=== PATIENT | male | born 1955 | race Caucasian/White ===

== ENCOUNTER 2019-11-09 08:24 | Outpatient (CLI) | payer BC ==
[2019-11-09 10:18] LABS: #Basophils 0.1 thou/uL (0.0-0.2); #Eosinphils 0.5 thou/uL (0.0-0.7); #Monocytes 0.9 thou/uL (0.11-0.59); %Basophils 0.8 % (0.0-1.0); %Eosinophils 5.6 % (0.0-10.0); %Lymphocytes 31.9 % (21.0-51.0); %Monocytes 9.4 % (0.0-10.0); %Neutrophils 52.3 % (42.0-75.0); Hemoglobin 15.1 g/dL (14.0-18.0); Mean Corpuscular HGB CONC 33.7 g/dL (32.0-36.0); Mean Corpuscular Volume 89.2 fL (78.0-98.0); Mean Platelet Volume 8.3 fL (7.4-10.4); Platelet Count 199 thou/uL (130-400); RBC Distribution Width 12.1 % (11.5-14.5); Red Blood Cell (RBC) Count 5.02 mill/uL (4.70-6.10); White Blood Cell (WBC) Count 9.5 thou/uL (4.8-10.8)
[2019-11-09 10:20] LABS: Bacteria/HPF None Seen HPF (None Seen); Bilirubin Negative (Negative); Blood, Urine Negative (Negative); Clarity Clear (Clear); Glucose, Urine (Dipstick) Normal (Negative); Leukocyte Negative Leu/uL (Negative); Nitrite Negative (Negative); Protein, Urine (Dipstick) Negative (Neg-Trace); RBC/HPF 0-3 HPF (0-3); Squamous Epithelial None Seen HPF (0-3); Urobilinogen Normal mg/dL (Less than 2); WBC/HPF 0-3 HPF (0-3)
[2019-11-09 10:26] LABS: Prothrombin Time 12.9 SEC (12.0-14.7)
[2019-11-09 10:40] LABS: Anion Gap 12 mmol/L (10-20); BUN (Urea Nitrogen) 18 mg/dL (8.4-25.7); Calc. Creatinine Clearance 0 mL/min (70-130); Calcium 9.4 mg/dL (7.8-10.44); Carbon Dioxide 28 mmol/L (23-31); Chloride 106 mmol/L (98-107); Estimated GFR-MDRD 86; Glucose 86 mg/dL (80-115); Potassium 4.5 mmol/L (3.5-5.1); Sodium 141 mmol/L (136-145)
== END 2019-11-09 08:25 | disposition home or self-care (01) ==
LOC: LABBT 08:24
PROVIDERS: ATTEND Orthopaedic Surgery
DX: Z01.818 Encounter for other preprocedural examination (principal); M17.0 Bilateral primary osteoarthritis of knee
CPT/HCPCS: 80048; 81001; 85025; 85610; 87081; 93005; 93010

== ENCOUNTER 2020-02-29 05:37 | Outpatient (CLI) | payer BC, OTHER ==
[2020-02-29 18:12] LABS: #Basophils 0.1 thou/uL (0.0-0.2); #Eosinphils 0.3 thou/uL (0.0-0.7); #Lymphocytes 2.2 thou/uL (1.20-3.40); #Monocytes 0.7 thou/uL (0.11-0.59); %Basophils 0.9 % (0.0-1.0); %Eosinophils 3.1 % (0.0-10.0); %Lymphocytes 26.9 % (21.0-51.0); %Monocytes 8.4 % (0.0-10.0); %Neutrophils 60.8 % (42.0-75.0); Mean Corpuscular HGB CONC 33.7 g/dL (32.0-36.0); Mean Corpuscular Hemoglobin 29.6 pg (27.0-31.0); Mean Platelet Volume 8.8 fL (7.4-10.4); Platelet Count 211 thou/uL (130-400); RBC Distribution Width 11.7 % (11.5-14.5); Red Blood Cell (RBC) Count 5.07 mill/uL (4.70-6.10); White Blood Cell (WBC) Count 8.3 thou/uL (4.8-10.8)
[2020-02-29 18:15] LABS: INR-International Normal Ratio 0.9; Prothrombin Time 12.3 sec (12.0-14.7)
[2020-02-29 18:23] LABS: Bacteria/HPF None Seen HPF (None Seen); Bilirubin Negative (Negative); Blood, Urine Negative (Negative); Clarity Clear (Clear); Glucose, Urine (Dipstick) Normal (Negative); Ketone, Urine Negative (Negative); Leukocyte Negative Leu/uL (Negative); Nitrite Negative (Negative); Protein, Urine (Dipstick) Negative (Neg-Trace); RBC/HPF 0-3 HPF (0-3); Specific Gravity, Urine 1.016 (1.002-1.036); Squamous Epithelial None Seen HPF (0-3); Urobilinogen Normal mg/dL (Less than 2); WBC/HPF 0-3 HPF (0-3); pH, Urine 6.5 (5.0-9.0)
[2020-02-29 18:30] LABS: Anion Gap 9 mmol/L (10-20); BUN (Urea Nitrogen) 17 mg/dL (8.4-25.7); Calc. Creatinine Clearance 0 mL/min (70-130); Calcium 9.5 mg/dL (7.8-10.44); Carbon Dioxide 30 mmol/L (23-31); Chloride 104 mmol/L (98-107); Estimated GFR-MDRD Greater than 90; Glucose 88 mg/dL (80-115); Potassium 4.3 mmol/L (3.5-5.1); Sodium 139 mmol/L (136-145)
[2020-03-01 14:12] LABS: SARS-CoV-2 MS2 Positive; SARS-CoV-2 N Gene Negative; SARS-CoV-2 S Gene Negative; SARS-CoV-2 orf1ab Negative
== END 2020-02-29 05:38 | disposition home or self-care (01) ==
LOC: LABBT 05:37
PROVIDERS: ATTEND Orthopaedic Surgery
DX: Z01.812 Encounter for preprocedural laboratory examination (principal); Z11.59 Encounter for screening for other viral diseases; M17.0 Bilateral primary osteoarthritis of knee
CPT/HCPCS: 80048; 81001; 85025; 85610; 87635; U0003

== ENCOUNTER 2020-02-29 16:15 | Inpatient (IN) | payer BC ==
[2020-03-04] MEDS ORDERED: methylPREDNISolone Acetate 40 mg/ml Vial ONE (06:25)
[2020-03-04] MEDS ORDERED: Lidocaine 1% (PF) 30 ML VIAL ONE ×2 (06:25→06:31)
[2020-03-04] MEDS ORDERED: Bupivacaine PF 0.5% 30 ML VIAL ONE (06:25)
[2020-03-04] MEDS ORDERED: Fentanyl 100 MCG/2 ML VIAL ONE ×2 (06:30→07:21)
[2020-03-04] MEDS ORDERED: Midazolam HCl 2 mg/2 ml Vial ONE (06:30)
[2020-03-04] MEDS ORDERED: Tranexamic Acid 1,000 MG/10 ML VIAL ONE ×2 (06:32→09:11)
[2020-03-04] MEDS ORDERED: Vancomycin HCl 500 MG VIAL ONE (06:33)
[2020-03-04] MEDS ORDERED: Vancomycin 1 GM/200 ML BAG ONE (06:34)
[2020-03-04] MEDS ORDERED: Sodium Chloride 0.9% 100 ML ONE (06:34)
[2020-03-04] MEDS ORDERED: Clindamycin/D5W 600 mg/50 ml Premix Bag ONE (06:35)
[2020-03-04] MEDS ORDERED: HYDROcodone/Acetaminophen 10/325 mg Tablet PO PRN ×2 (06:57)
[2020-03-04] MEDS ORDERED: Ondansetron PF 4 MG/2 ML Vial IVP PRN ×2 (06:57→07:23)
[2020-03-04] MEDS ORDERED: Ropivacaine HCl/PF 250 ML in Premix Bag 1 BAG NERVE BLCK SCH (06:57)
[2020-03-04] MEDS ORDERED: Promethazine HCl 25 MG/ML VIAL IM PRN ×3 (06:57→08:05)
[2020-03-04] MEDS ORDERED: Zolpidem Tartrate 5 MG TAB PO PRN ×2 (06:57→07:23)
[2020-03-04] MEDS ORDERED: traMADol HCl 50 MG TAB PO PRN ×2 (06:57)
[2020-03-04] MEDS ORDERED: Fentanyl 100 MCG/2 ML VIAL IV PRN (06:58)
[2020-03-04] MEDS ORDERED: Acetaminophen 325 MG TAB PO PRN (07:23)
[2020-03-04] MEDS ORDERED: diphenhydrAMINE 25 MG CAP PO PRN (07:23)
[2020-03-04] MEDS ORDERED: Tranexamic Acid 1,000 MG in Sodium Chloride 0.9% 100 ML IVPB SCH (07:30)
[2020-03-04] MEDS ORDERED: Promethazine HCl 25 MG/ML VIAL SLOW IVP PRN (08:05)
[2020-03-04] MEDS ORDERED: HYDROmorphone 2 MG/ML VIAL SLOW IVP PRN (08:05)
[2020-03-04] MEDS ORDERED: Meperidine HCl/PF 25 MG/ML VIAL SLOW IVP PRN (08:05)
--- NOTE | 2020-03-04 09:11 | OP ---
DATE OF PROCEDURE: 03/04/2020 PREOPERATIVE DIAGNOSIS: Bilateral knee arthritis, left worse than right. POSTOPERATIVE DIAGNOSIS: Bilateral knee arthritis, left worse than right. PROCEDURES PERFORMED: 1. Left total knee replacement using [employer] pinless navigation. 2. Right knee corticosteroid injection. NETWORK MANAGEMENT SPECIALIST: Jose Capps PA-C ESTIMATED BLOOD LOSS: Minimal. COMPLICATIONS: None. ANESTHESIA: The patient had general anesthetic as well as preoperative block. IMPLANTS: To the left knee include [employer] total knee system, femur was size 5 cruciate-retaining, tibia was size 5 primary tibial baseplate. We used a 5 x 9 mm CS X3 tibial insert, and an asymmetric 32 x 10 X3 patella. DISPOSITION: He did go to recovery room in stable condition. 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 At this time, he wished to have the right knee injected and left knee replaced. DESCRIPTION OF PROCEDURE: After all appropriate consent forms were explained and signed, he was taken to the operative room and at this time was given general anesthetic. Once the level of anesthesia was appropriate, the right knee was cleaned off with alcohol and plain lidocaine with 80 mg Depo-Medrol was injected into the knee without complication. Band-Aid was applied. After all appropriate consent forms were explained and signed, the patient was taken back to the operating room and at this time was given general anesthetic. Once the level of anesthesia was appropriate, a well-padded tourniquet was placed on the left leg, and the leg was then prepped and draped in standard surgical fashion. The limb was exsanguinated and tourniquet taken up to 300 mmHg. Midline incision was made with a 10 blade down through the skin and subcutaneous tissue. Bovie electrocautery was used to coagulate any brisk venous bleeding. A new blade was used to make a medial parapatellar arthrotomy. Small subperiosteal release was performed medially and excess fat pad was removed. The knee was flexed up to gain access to the femur. The femur was navigated and distal femoral resection was made. Epicondylar access was used to align our sizing jig and this was pinned in place. We sized our femur to be a size 5 cruciate-retaining. 4:1 cutting block was applied and pinned. Anterior and posterior chamfer cuts were then made. We navigated out our proximal tibia and made our proximal tibial resection. Spreaders were used to remove any posterior osteophytes off the back of the femur as well as remaining meniscal tissue. A long alignment north was then used to achieve correct rotation of our tibial baseplate and a size 5 primary tibial baseplate was chosen. This was pinned in place. We trialed the polyethylene and we used a 5 x 9 mm CS X3 tibial insert polyethylene gave us full extension and good stability throughout range of motion. Two towel clips and a saw were used to cut our patella. Three lug nuts were drilled and an asymmetric 32 x 10 X3 patella was trialed which sat nicely in the trochlear groove. We then drilled our femur and punched our tibia. All components were removed. The knee was thoroughly irrigated and dried. Cement was mixed into the cement gun on the back table. Components were then placed. The knee was held out in full extension until the cement had dried. All excess bone cement was removed. Multiple #2 Vicryl stitches as well as a Quill were used to close our extensor mechanism. 0 Quill followed by a running Monoderm was then used to close the skin. Surgicel glue was then used on the skin. Once this had dried, soft tissue dressing was applied to the limb, tourniquet was let down, and the toes pinked up nicely. The patient was then awakened and taken to the recovery room in stable condition. All counts were correct at the end of the case. The patient did receive preoperative IV antibiotics. The patient was injected with Marcaine for postoperative pain relief. Job ID: [id number]
[2020-03-04 10:12] VITALS: BMI 24.8
[2020-03-04] MEDS: Ferrous Gluconate 324 MG TAB PO SCH ×2 (10:57→20:17)
[2020-03-04] MEDS: Aspirin 81 mg Enteric Coated Tablet PO SCH ×2 (10:57→20:16)
[2020-03-04] MEDS: Sodium Chloride 0.9% 1,000 ML IV SCH ×2 (10:57→16:22)
[2020-03-04] MEDS: Brimonidine Tartrate 0.2% Ophth Soln 5 ml Bottle EA EYE SCH ×2 (10:57→20:14)
[2020-03-04] MEDS: Senokot S 8.6-50 MG TAB PO SCH ×2 (10:58→20:17)
[2020-03-04] MEDS: Levothyroxine Sodium 112 MCG TAB PO SCH (10:58)
[2020-03-04] MEDS: Multivitamin W/ Minerals 1 TAB PO SCH (10:58)
[2020-03-04] MEDS: Timolol 0.5% Ophth Soln 5 ml Bottle EA EYE SCH ×2 (10:58→20:13)
[2020-03-04] MEDS ORDERED: Dexamethasone 20 MG/5 ML VIAL ONE (11:12)
[2020-03-04] MEDS ORDERED: Lidocaine 1% PF 5 ML VIAL ONE (11:12)
[2020-03-04] MEDS ORDERED: Ropivacaine 0.2% HCl/PF (40 MG/20 ML VIAL) ONE (11:12)
[2020-03-04] MEDS ORDERED: Ondansetron PF 4 MG/2 ML Vial ONE (11:12)
[2020-03-04] MEDS ORDERED: Bupivacaine HCl 0.5%/Epinephrine 1:200,000/PF 30 ml Vial ONE (11:12)
[2020-03-04] MEDS ORDERED: Ketorolac Tromethamine 30 MG/ML VIAL ONE (11:12)
[2020-03-04] MEDS ORDERED: EPHEDRINE 25 MG/5 ML SYRINGE ONE (11:12)
[2020-03-04] MEDS ORDERED: PROPOFOL 200 MG/20 ML VIAL ONE (11:12)
[2020-03-04] MEDS ORDERED: Non-Formulary Item 1 EACH (Valsartan [Valsartan] 1 TAB) PO SCH (12:00)
[2020-03-04] MEDS: Valsartan 80 MG TAB PO SCH (12:01)
[2020-03-04] MEDS: Clindamycin/D5W 900 MG in Premix Bag 1 BAG IVPB SCH ×2 (14:02→20:08)
[2020-03-04] MEDS: Ketorolac Tromethamine 30 MG/ML VIAL IVP SCH ×2 (14:02→20:08)
[2020-03-04] MEDS ORDERED: Vancomycin 1 GM in Premix Bag 1 BAG IVPB SCH (19:00)
[2020-03-04] MEDS: Latanoprost 0.005% Ophth Soln 2.5 ml Bottle EA EYE SCH (20:14)
[2020-03-04] MEDS: Loratadine 10 MG TAB PO SCH (20:17)
[2020-03-04] MEDS: Atorvastatin Calcium 20 MG TAB PO SCH (20:17)
[2020-03-04] MEDS ORDERED: Non-Formulary Item 1 EACH (Travoprost [Travatan Z] 1 DROP) TOP SCH (21:00)
[2020-03-04] MEDS ORDERED: Cetirizine HCl 10 MG TAB PO SCH (21:00)
[2020-03-05] MEDS: Ketorolac Tromethamine 30 MG/ML VIAL IVP SCH ×4 (02:31→21:19)
[2020-03-05] MEDS: Sodium Chloride 0.9% 1,000 ML IV SCH ×2 (03:18→11:21)
[2020-03-05 05:11] LABS: Hemoglobin 12.3 g/dL (14.0-18.0); Mean Corpuscular Hemoglobin 29.1 pg (27.0-31.0); Mean Corpuscular Volume 88.1 fL (78.0-98.0); Mean Platelet Volume 8.7 fL (7.4-10.4); Platelet Count 182 thou/uL (130-400); RBC Distribution Width 11.9 % (11.5-14.5); Red Blood Cell (RBC) Count 4.24 mill/uL (4.70-6.10); White Blood Cell (WBC) Count 12.1 thou/uL (4.8-10.8)
[2020-03-05] MEDS: Levothyroxine Sodium 112 MCG TAB PO SCH ×2 (06:09→06:10)
[2020-03-05] MEDS: Multivitamin W/ Minerals 1 TAB PO SCH (08:29)
[2020-03-05] MEDS: Aspirin 81 mg Enteric Coated Tablet PO SCH ×2 (08:29→21:20)
[2020-03-05] MEDS: Senokot S 8.6-50 MG TAB PO SCH ×2 (08:29→21:20)
[2020-03-05] MEDS: Ferrous Gluconate 324 MG TAB PO SCH ×2 (08:29→21:21)
[2020-03-05] MEDS: Timolol 0.5% Ophth Soln 5 ml Bottle EA EYE SCH ×2 (08:31→21:21)
[2020-03-05] MEDS: Brimonidine Tartrate 0.2% Ophth Soln 5 ml Bottle EA EYE SCH ×2 (08:31→21:23)
--- NOTE | 2020-03-05 09:07 | PRG ---
DATE OF SERVICE: 03/05/2020 SUBJECTIVE: David is a 64-year-old male, postoperative day 1 from a left total knee arthroplasty. He has no complaints. He is a little tender this morning, but overall he has been already out of bed yesterday evening and ambulated 230 feet. OBJECTIVE: VITAL SIGNS: Temperature 98.6, pulse 80, respiratory rate 14, and blood pressure 124/73. GENERAL: He is alert and oriented to person, place, time, and situation, responsive and appropriate with examiner, conversive and pleasant. EXTREMITIES: His incision is clean without any erythema. There is no strike through and he is neurovascularly intact in the left lower extremity. LABORATORY DATA: Hemoglobin and hematocrit 12.3 and 37.4. IMPRESSION: A 64-year-old male postoperative day 1 for left total knee arthroplasty, doing well. PLAN: Continue current care. Probable discharge home tomorrow or following day should he require this for pain control. Job ID: [id number]
[2020-03-05] MEDS: Valsartan 80 MG TAB PO SCH (11:24)
[2020-03-05] MEDS: Atorvastatin Calcium 20 MG TAB PO SCH (21:20)
[2020-03-05] MEDS: Loratadine 10 MG TAB PO SCH (21:21)
[2020-03-05] MEDS: Latanoprost 0.005% Ophth Soln 2.5 ml Bottle EA EYE SCH (21:22)
[2020-03-06] MEDS: Sodium Chloride 0.9% 1,000 ML IV SCH ×2 (00:56→10:10)
[2020-03-06] MEDS: Ketorolac Tromethamine 30 MG/ML VIAL IVP SCH ×3 (02:47→10:09)
[2020-03-06] MEDS: Levothyroxine Sodium 112 MCG TAB PO SCH ×3 (05:51→10:12)
[2020-03-06 06:14] LABS: Hemoglobin 12.3 g/dL (14.0-18.0); Mean Corpuscular HGB CONC 34.5 g/dL (32.0-36.0); Mean Corpuscular Hemoglobin 30.7 pg (27.0-31.0); Mean Corpuscular Volume 89.2 fL (78.0-98.0); Mean Platelet Volume 8.5 fL (7.4-10.4); Platelet Count 170 thou/uL (130-400); Red Blood Cell (RBC) Count 4.01 mill/uL (4.70-6.10); White Blood Cell (WBC) Count 11.7 thou/uL (4.8-10.8)
[2020-03-06] MEDS: Senokot S 8.6-50 MG TAB PO SCH (10:07)
[2020-03-06] MEDS: Multivitamin W/ Minerals 1 TAB PO SCH (10:07)
[2020-03-06] MEDS: Aspirin 81 mg Enteric Coated Tablet PO SCH (10:08)
[2020-03-06] MEDS: Brimonidine Tartrate 0.2% Ophth Soln 5 ml Bottle EA EYE SCH (10:08)
[2020-03-06] MEDS: Ferrous Gluconate 324 MG TAB PO SCH (10:08)
[2020-03-06] MEDS: Timolol 0.5% Ophth Soln 5 ml Bottle EA EYE SCH (10:10)
[2020-03-06 12:08] VITALS: BP 121/76; TEMP 98.2
[2020-03-06] MEDS: Valsartan 80 MG TAB PO SCH (12:47)
== END 2020-03-06 16:31 | disposition home or self-care (01) | DRG 470 ==
LOC: SURG A 03-04 05:15 → SURG B 03-04 09:54
PROVIDERS: ADMIT Orthopaedic Surgery; ATTEND Orthopaedic Surgery
PROC: 0SRD0J9 Replacement of Left Knee Joint with Synthetic Substitute, Cemented, Open Approach (ICD-10-PCS; principal; 2020-03-04)
PROC: 3E0U33Z Introduction of Anti-inflammatory into Joints, Percutaneous Approach (ICD-10-PCS; 2020-03-04)
DX: M17.0 Bilateral primary osteoarthritis of knee (principal); I10 Essential (primary) hypertension; E78.5 Hyperlipidemia, unspecified; E03.9 Hypothyroidism, unspecified; G25.81 Restless legs syndrome; H40.9 Unspecified glaucoma; Z88.0 Allergy status to penicillin; Z88.2 Allergy status to sulfonamides
CPT/HCPCS: 36415; 85027; C1713; C1776; J0670; J1100; J1885; J2001; J2250; J2405; J2704; J2795; J2920; J3010; J3370; J3490; S0020

== ENCOUNTER 2022-03-18 14:54 | Outpatient (CLI) | payer BC | END 2022-03-18 14:55 | disposition home or self-care (01) | LOC: LABBT 14:54 | PROVIDERS: ATTEND Orthopaedic Surgery | DX: Z01.818 Encounter for other preprocedural examination (principal); M17.11 Unilateral primary osteoarthritis, right knee | CPT/HCPCS: 71046; 93005; 93010 ==

== ENCOUNTER 2022-03-23 05:31 | Inpatient (IN) | payer BC ==
[2022-03-18 16:04] LABS: #Basophils 0.1 10x3/uL (0.0-0.2); #Eosinphils 0.3 10x3/uL (0.0-0.5); #Monocytes 0.7 10x3/uL (0.0-1.1); #Neutrophils 5.3 10x3/uL (1.5-8.4); %Basophils 0.6 % (0.0-2.0); %Eosinophils 3.5 % (0.0-6.0); %Lymphocytes 21.7 % (18.0-47.0); %Monocytes 8.9 % (0.0-10.0); %Neutrophils 64.9 % (40.0-75.0); Hemoglobin 14.9 g/dL (13.5-17.5); Mean Corpuscular HGB CONC 33.4 g/dL (32.0-36.0); Mean Corpuscular Hemoglobin 29.3 pg (27.0-33.0); Mean Corpuscular Volume 87.8 fl (81.2-95.1); Mean Platelet Volume 10.8 fl (7.4-10.4); Platelet Count 229 10x3/uL (150-450); RBC Distribution Width 12.6 % (11.5-14.5); Red Blood Cell (RBC) Count 5.08 10x6/uL (4.32-5.72); White Blood Cell (WBC) Count 8.1 10x3/uL (3.5-10.5)
[2022-03-18 16:18] LABS: Bilirubin Neg (Negative); Blood, Urine Negative (Negative); Clarity Clear (Clear); Glucose, Urine (Dipstick) Normal (Negative); Ketone, Urine Negative (Negative); Leukocyte Negative (Negative); Nitrite Negative (Negative); Protein, Urine (Dipstick) Negative (Neg-Trace); Specific Gravity, Urine 1.015 (1.002-1.036); Urobilinogen Normal mg/dL (Less than 2)
[2022-03-18 16:30] LABS: Prothrombin Time 10.5 sec (9.5-12.1)
[2022-03-18 16:31] LABS: Anion Gap 10 mmol/L (10-20); BUN (Urea Nitrogen) 19 mg/dL (8.4-25.7); Calc. Creatinine Clearance 0 mL/min (70-130); Calcium 9.8 mg/dL (7.8-10.44); Carbon Dioxide 31 mmol/L (23-31); Chloride 105 mmol/L (98-107); Estimated GFR 95; Glucose 81 mg/dL (80-115); Potassium 4.1 mmol/L (3.5-5.1); Sodium 142 mmol/L (136-145)
[2022-03-19 14:53] VITALS: BMI 25.3
[2022-03-23] MEDS ORDERED: Vancomycin (BATCH) 1.5 GRAM/300 ML BAG ONE (05:59)
[2022-03-23] MEDS ORDERED: Tranexamic Acid 1,000 MG/10 ML VIAL ONE ×2 (05:59→09:50)
[2022-03-23] MEDS ORDERED: Sodium Chloride 0.9% 100 ML ONE (05:59)
[2022-03-23] MEDS ORDERED: fentaNYL Citrate/PF 100 MCG/2 ML SYRINGE ONE (06:19)
[2022-03-23] MEDS ORDERED: Bupivacaine PF 0.5% 30 ML VIAL ONE (06:24)
[2022-03-23] MEDS ORDERED: Clindamycin/D5W 600 mg/50 ml Premix Bag ONE (06:55)
[2022-03-23] MEDS ORDERED: Fentanyl 100 MCG/2 ML VIAL IV PRN (07:13)
[2022-03-23] MEDS ORDERED: Promethazine HCl 25 MG/ML VIAL IM PRN ×2 (07:15→07:23)
[2022-03-23] MEDS ORDERED: traMADol HCl 50 MG TAB PO PRN (07:15)
[2022-03-23] MEDS ORDERED: Ropivacaine 0.2% 550 ML 550 ML NERVE BLCK SCH (07:15)
[2022-03-23] MEDS ORDERED: HYDROcodone/Acetaminophen 10/325 mg Tablet PO PRN (07:15)
[2022-03-23] MEDS ORDERED: Ondansetron PF 4 MG/2 ML Vial IVP PRN ×2 (07:15→07:23)
[2022-03-23] MEDS ORDERED: Zolpidem Tartrate 5 MG TAB PO PRN ×2 (07:15→07:23)
[2022-03-23] MEDS ORDERED: Ketorolac Tromethamine 30 MG/ML VIAL ONE (07:21)
[2022-03-23] MEDS ORDERED: Bupivacaine HCl 0.5%/Epinephrine 1:200,000/PF 30 ml Vial ONE (07:21)
[2022-03-23] MEDS ORDERED: ePHEDrine 50 MG/ML VIAL ONE (07:21)
[2022-03-23] MEDS ORDERED: Ondansetron PF 4 MG/2 ML Vial ONE (07:21)
[2022-03-23] MEDS ORDERED: PROPOFOL 200 MG/20 ML VIAL ONE (07:21)
[2022-03-23] MEDS ORDERED: Dexamethasone 20 MG/5 ML VIAL ONE (07:21)
[2022-03-23] MEDS ORDERED: diphenhydrAMINE 25 MG CAP PO PRN (07:23)
[2022-03-23] MEDS ORDERED: Acetaminophen 325 MG TAB PO PRN (07:23)
[2022-03-23] MEDS ORDERED: Vancomycin HCl 1.5 GM in Sodium Chloride 0.9% 250 ML 300 ML IVPB SCH (07:30)
[2022-03-23] MEDS ORDERED: Tranexamic Acid 1,000 MG in Sodium Chloride 0.9% 100 ML IVPB SCH (07:30)
[2022-03-23] MEDS: Aspirin 81 mg Enteric Coated Tablet PO SCH ×2 (10:58→20:55)
[2022-03-23] MEDS: Clindamycin/D5W 900 MG in Premix Bag 1 BAG IVPB SCH ×2 (11:17→17:24)
[2022-03-23] MEDS: Ketorolac Tromethamine 30 MG/ML VIAL IVP SCH ×3 (11:17→23:50)
[2022-03-23] MEDS: Sodium Chloride 0.9% 1,000 ML IV SCH ×2 (11:18→17:27)
[2022-03-23] MEDS ORDERED: Vancomycin 1.5 GRAM/300 ML BAG 1.5 GM in Premix Bag 1 BAG IVPB SCH (18:00)
[2022-03-23] MEDS: Timolol 0.5% Ophth Soln 5 ml Bottle EA EYE SCH (20:53)
[2022-03-23] MEDS: Brimonidine Tartrate 0.2% Ophth Soln 5 ml Bottle EA EYE SCH (20:54)
[2022-03-23] MEDS: Loratadine 10 MG TAB PO SCH (20:55)
[2022-03-23] MEDS: Atorvastatin Calcium 20 MG TAB PO SCH (20:55)
[2022-03-23] MEDS: Latanoprost 0.005% Ophth Soln 2.5 ml Bottle EA EYE SCH (20:55)
[2022-03-23] MEDS: OSTEOBIFLEX FS SCH (21:00)
[2022-03-24] MEDS: Sodium Chloride 0.9% 1,000 ML IV SCH ×3 (03:30→23:30)
[2022-03-24] MEDS: Ketorolac Tromethamine 30 MG/ML VIAL IVP SCH ×3 (05:31→17:17)
[2022-03-24] MEDS: Levothyroxine Sodium 112 MCG TAB PO SCH (05:31)
[2022-03-24 06:27] LABS: Mean Corpuscular HGB CONC 34.4 g/dL (32.0-36.0); Mean Platelet Volume 8.5 fL (7.4-10.4); Platelet Count 178 thou/uL (130-400); RBC Distribution Width 12.1 % (11.5-14.5); Red Blood Cell (RBC) Count 4.52 mill/uL (4.70-6.10); White Blood Cell (WBC) Count 12.9 thou/uL (4.8-10.8)
[2022-03-24] MEDS: Multivitamin W/ Minerals 1 TAB PO SCH (09:08)
[2022-03-24] MEDS: Aspirin 81 mg Enteric Coated Tablet PO SCH ×2 (09:08→20:39)
[2022-03-24] MEDS: Timolol 0.5% Ophth Soln 5 ml Bottle EA EYE SCH ×2 (09:08→20:39)
[2022-03-24] MEDS: Senokot S 8.6-50 MG TAB PO SCH ×2 (09:08→20:40)
[2022-03-24] MEDS: Ferrous Gluconate 324 MG TAB PO SCH ×2 (09:08→17:17)
[2022-03-24] MEDS: HYDROcodone/Acetaminophen 10/325 mg Tablet PO PRN (09:09)
[2022-03-24] MEDS: Brimonidine Tartrate 0.2% Ophth Soln 5 ml Bottle EA EYE SCH ×2 (09:10→21:03)
[2022-03-24] MEDS: Valsartan 80 MG TAB PO SCH (11:24)
[2022-03-24] MEDS: Loratadine 10 MG TAB PO SCH (20:39)
[2022-03-24] MEDS: OSTEOBIFLEX FS SCH (21:00)
[2022-03-24] MEDS: Atorvastatin Calcium 20 MG TAB PO SCH (21:03)
[2022-03-24] MEDS: Latanoprost 0.005% Ophth Soln 2.5 ml Bottle EA EYE SCH (21:03)
[2022-03-25] MEDS: Ketorolac Tromethamine 30 MG/ML VIAL IVP SCH ×2 (00:10→05:54)
[2022-03-25 05:36] LABS: Hemoglobin 12.5 g/dL (14.0-18.0); Mean Corpuscular HGB CONC 32.8 g/dL (32.0-36.0); Mean Corpuscular Hemoglobin 30.2 pg (27.0-31.0); Mean Corpuscular Volume 92.2 fL (78.0-98.0); Mean Platelet Volume 8.4 fL (7.4-10.4); Platelet Count 161 thou/uL (130-400); RBC Distribution Width 12.1 % (11.5-14.5); Red Blood Cell (RBC) Count 4.12 mill/uL (4.70-6.10); White Blood Cell (WBC) Count 11.2 thou/uL (4.8-10.8)
[2022-03-25] MEDS: Levothyroxine Sodium 112 MCG TAB PO SCH (05:54)
[2022-03-25] MEDS: Senokot S 8.6-50 MG TAB PO SCH ×2 (10:13→21:50)
[2022-03-25] MEDS: Ferrous Gluconate 324 MG TAB PO SCH ×2 (10:13→16:55)
[2022-03-25] MEDS: Brimonidine Tartrate 0.2% Ophth Soln 5 ml Bottle EA EYE SCH ×2 (10:13→21:53)
[2022-03-25] MEDS: Aspirin 81 mg Enteric Coated Tablet PO SCH ×2 (10:13→21:52)
[2022-03-25] MEDS: Multivitamin W/ Minerals 1 TAB PO SCH (10:13)
[2022-03-25] MEDS: Sodium Chloride 0.9% 1,000 ML IV SCH ×2 (10:14→21:46)
[2022-03-25] MEDS: Timolol 0.5% Ophth Soln 5 ml Bottle EA EYE SCH ×2 (10:20→21:52)
[2022-03-25] MEDS: Valsartan 80 MG TAB PO SCH (12:08)
[2022-03-25] MEDS: HYDROcodone/Acetaminophen 10/325 mg Tablet PO PRN (16:54)
[2022-03-25] MEDS: Loratadine 10 MG TAB PO SCH (21:52)
[2022-03-25] MEDS: Atorvastatin Calcium 20 MG TAB PO SCH (21:52)
[2022-03-25] MEDS: Latanoprost 0.005% Ophth Soln 2.5 ml Bottle EA EYE SCH (22:11)
[2022-03-26] MEDS: HYDROcodone/Acetaminophen 10/325 mg Tablet PO PRN (01:52)
[2022-03-26] MEDS: traMADol HCl 50 MG TAB PO PRN ×2 (04:41→15:14)
[2022-03-26] MEDS: Levothyroxine Sodium 112 MCG TAB PO SCH (04:41)
[2022-03-26] MEDS: Sodium Chloride 0.9% 1,000 ML IV SCH (05:35)
[2022-03-26 05:48] LABS: Hemoglobin 12.4 g/dL (14.0-18.0); Mean Corpuscular HGB CONC 33.2 g/dL (32.0-36.0); Mean Corpuscular Hemoglobin 30.1 pg (27.0-31.0); Mean Corpuscular Volume 90.7 fL (78.0-98.0); Mean Platelet Volume 8.4 fL (7.4-10.4); Platelet Count 189 thou/uL (130-400); RBC Distribution Width 11.9 % (11.5-14.5); Red Blood Cell (RBC) Count 4.13 mill/uL (4.70-6.10); White Blood Cell (WBC) Count 11.2 thou/uL (4.8-10.8)
[2022-03-26] MEDS: Timolol 0.5% Ophth Soln 5 ml Bottle EA EYE SCH (09:26)
[2022-03-26] MEDS: Brimonidine Tartrate 0.2% Ophth Soln 5 ml Bottle EA EYE SCH (09:26)
[2022-03-26] MEDS: Senokot S 8.6-50 MG TAB PO SCH (09:27)
[2022-03-26] MEDS: Aspirin 81 mg Enteric Coated Tablet PO SCH (09:27)
[2022-03-26] MEDS: Ferrous Gluconate 324 MG TAB PO SCH (09:27)
[2022-03-26] MEDS: Multivitamin W/ Minerals 1 TAB PO SCH (09:27)
[2022-03-26] MEDS: Valsartan 80 MG TAB PO SCH (11:51)
[2022-03-26 12:21] VITALS: BP 126/79; TEMP 97.9
== END 2022-03-26 15:40 | disposition home or self-care (01) | DRG 470 ==
LOC: SDC 05:31 → SURG B 10:33 → EDSTATUS 15:00 → OBSVTOIN 03-24 09:08
PROVIDERS: ADMIT Orthopaedic Surgery; ATTEND Orthopaedic Surgery
PROC: 0SRC0J9 Replacement of Right Knee Joint with Synthetic Substitute, Cemented, Open Approach (ICD-10-PCS; principal; 2022-03-23)
DX: M17.11 Unilateral primary osteoarthritis, right knee (principal); Z88.0 Allergy status to penicillin; Z88.2 Allergy status to sulfonamides
CPT/HCPCS: 36415; 80048; 81003; 85025; 85027; 85610; 86850; 86900; 86901; 87081; 87811; 96374; 96375; 96376; A4306; C1713; C1776; G0378; J1100; J1885; J2405; J2704; J2795; J3370; J3490; J7050; S0020

== ENCOUNTER 2022-05-02 17:05 | Emergency (ER) | payer BC | END 2022-05-02 20:35 | disposition home or self-care (01) | LOC: ERS 17:05 | DX: M79.89 Other specified soft tissue disorders (principal); E03.9 Hypothyroidism, unspecified; E78.00 Pure hypercholesterolemia, unspecified; I10 Essential (primary) hypertension ==

== ENCOUNTER 2023-06-01 14:12 | Outpatient (CLI) | payer BC | END 2023-06-01 14:13 | disposition home or self-care (01) | LOC: SCSMRI 14:12 | PROVIDERS: ATTEND Orthopaedic Surgery | DX: M25.551 Pain in right hip (principal); S73.191A Other sprain of right hip, initial encounter; M24.151 Other articular cartilage disorders, right hip ==